=== PATIENT | female | born 1985 | race Asian ===

== ENCOUNTER 2021-07-30 11:15 | Emergency (ER) | payer SELFPAY ==
--- NOTE | 2021-07-30 11:20 | XR_ITS ---
WS: [id number] Portable AP upright chest, 07/30/2021 Clinical Data: chest pain Comparison: None. Findings: No nodules, masses or effusions are seen. The heart is normal. The pulmonary vascularity is not increased. No pneumonia or pneumothorax is seen. XR/XR chest 1V portable [id number] Impression: Negative chest.
[2021-07-30 11:25] VITALS: BP 133/86; PULSE 91; RESP 16; TEMP 36.3; O2SAT 98; BMI 31.3
--- NOTE | 2021-07-30 11:34 | PC.NURSE ---
ekg done and taken to ED physician
--- NOTE | 2021-07-30 11:40 | ED_ITS ---
HPI - Chest Pain General: Chief Complaint: Chest Pain Stated Complaint: cp History of Present Illness: HPI narrative: She presents with chest pressure. Patient states she was sent on her desk today and felt pressure in her chest and has been varying levels of intensity. She said at one point it radiated up into her left jaw. Patient states she feels pretty good right now but does have some heaviness in the center of her chest. Patient denies any heart history shortness of breath or recent illness or reflux. Patient does not appear in any acute distress presently. Visit with patient [id number]. Chest x-ray was clear. Patient stating she is wanting to leave. I advised her because she had chest pain pressure that she should stay and get laboratory work done and just verified that everything is okay. Patient says she is feeling fine she thinks she became upper quickly and should wait longer to see if symptoms resolve. Patient says she feels much better has no pain or pressure and that if she does she will return to the ER. I advised patient that she should stay she elects to leave. Course Vital Signs: Vital signs: Vital Signs Temperature 97.3 F L 07/30/21 11:25 Pulse Rate 91 07/30/21 11:25 Respiratory Rate 16 07/30/21 11:25 Blood Pressure 133/86 07/30/21 11:25 Pulse Oximetry 98 07/30/21 11:25 Coding Level of Care Code ED [employer] for [facility]ars
== END 2021-07-30 13:01 | disposition left against medical advice (07) ==
PROVIDERS: Emergency Provider Family Medicine
DX: R07.9 Chest pain, unspecified (principal)
CPT/HCPCS: 71045

== ENCOUNTER → 2022-03-14 09:28 | Outpatient (BNVA) | payer OTHER, SELFPAY | PROVIDERS: PCP Family Medicine; Visit Provider Family Medicine | DX: Z00.00 Encounter for general adult medical examination without abnormal findings (principal); Z12.4 Encounter for screening for malignant neoplasm of cervix; L70.9 Acne, unspecified | CPT/HCPCS: 87624 ==

== ENCOUNTER → 2022-09-12 09:03 | Outpatient (BNVA) | payer OTHER, SELFPAY | PROVIDERS: PCP Family Medicine; Visit Provider Family Medicine | DX: Z00.00 Encounter for general adult medical examination without abnormal findings (principal); L70.9 Acne, unspecified; R63.5 Abnormal weight gain | CPT/HCPCS: 80053; 80061; 83036; 84443 ==

== ENCOUNTER 2023-01-24 22:10 | Emergency (ER) | payer OTHER, SELFPAY ==
[2023-01-24 22:14] VITALS: BP 147/98; PULSE 105; RESP 18; TEMP 36.9; O2SAT 98; BMI 31.3
--- NOTE | 2023-01-24 23:31 | ED_ITS ---
HPI - Ear Problem General: Chief complaint: Ear Stated complaint: right ear pain Time Seen by Provider: 01/24/23 23:31 History of Present Illness: 37-year-old female comes in today for complaints of pain to the right ear. Patient was started on Augmentin and Ciprodex for an otitis externa of the right ear yesterday. Patient used the antibiotic eardrops once and had taken 1 dose of the antibiotic but comes in tonight due to the intense pain. Patient appears nontoxic. Patient appears in mild to moderate pain. Associated symptoms: Reports ear or mastoid pain Review of Systems ENMT: Reports: ear or mastoid pain Physical Exam Const: COMMON NORMALS: alert HENMT: COMMON NORMALS: normocephalic and TM's normal bilaterally HEAD & SCALP: normocephalic EXTERNAL AUDITORY CANAL: Abnormal EAC present EAC laterality: right Details: erythema and otic discharge TYMPANIC MEMBRANE: TM's normal bilaterally Neck/C-Spine: COMMON NORMALS: full ROM Resp: COMMON NORMALS: normal respiratory effort and clear to auscultation bilaterally AUSCULTATION: clear to auscultation bilaterally Cardio: COMMON NORMALS: regular rate and regular rhythm RATE: regular rate RHYTHM: regular rhythm Back/Pelvis: COMMON NORMALS: thoracic and lumbar spine normal to inspection Extremity: COMMON NORMALS: normal to inspection Neuro: SENSORIUM/ORIENTATION: Yes alert Skin: COMMON NORMALS: turgor normal GENERAL SKIN EXAM: turgor normal Course Vital Signs: Vital signs: Vital Signs Temperature 98.4 F 01/24/23 22:14 Pulse Rate 105 H 01/24/23 22:14 Respiratory Rate 18 01/24/23 22:14 Blood Pressure 147/98 01/24/23 22:14 Pulse Oximetry 98 01/24/23 22:14 [facility] - Ear Medical Decision Making 37-year-old female comes in today with increased pain and discomfort to the right ear after starting antibiotics for a otitis externa. Patient is presently on Ciprodex and Augmentin. Examination of the ear notes some exudate and drainage to the ear canal. Tympanic membrane appears clear without any erythema. Minimal swelling and erythema is noted to the canal. Left tympanic membrane and canal is normal. Differential diagnosis includes otitis externa, otitis media with perforation, cellulitis of the ear canal. Patient was given a dose of dexamethasone to help with pain and inflammation, 1 g of Rocephin for antibiotic, and 1 hydrocodone tablet. Patient had improvement of pain and was discharged home to continue antibiotics as prescribed and given 6 tablets of hydrocodone for severe pain. Patient reported understanding and agreed to plan. Discharge Plan Discharge Patient Disposition: Home Clinical Impression: Otitis externa Qualifiers: Otitis externa type: other infective Chronicity: acute Laterality: right Qualified Code(s): H60.391 - Other infective otitis externa, right ear Condition: Stable Prescriptions: New hydrocodone-acetaminophen 5-325 mg tablet 1 tab PO Q6H PRN (Reason: pain (scale score 7-10)) Qty: 6 0RF No Action tretinoin 0.05 % cream 1 applic topical Q2D Qty: 45 0RF amoxicillin-pot clavulanate 875-125 mg tablet 1 tab PO BID 7 Days Qty: 14 0RF ciprofloxacin-dexamethasone [Ciprodex] 0.3-0.1 % drops,suspension 4 drp otic (ear) BID 7 Days Qty: 7.5 0RF semaglutide 0.25 mg or 0.5 mg (2 mg/3 mL) pen injector 0.25 mg SUBCUT .weekly Qty: 3 5RF temazepam 7.5 mg capsule 7.5 mg PO .nightly Qty: 30 0RF Discharge Orders: Discharge ED (Routine); Ordered 01/24/23 Ordered By: Naveen Hale Referrals: Alexandru Levy DO [Primary Care Provider] - Discharge Diet: Usual diet Discharge Activity: Increase activity as tolerated Patient Instructions: Otitis Externa - Adult, Opioid Safety Activity Restrictions/Additional Instructions: Drink plenty of water and fluids. Continue with medications as directed. Use acetaminophen and ibuprofen to control pain. Use hydrocodone for severe pain. Follow-up with primary care for further instruction. Return to ED for new concerns or worsening symptoms. Coding Level of Care Code ED Outside [employer] for Pb [facility]
[2023-01-25] MEDS: cefTRIAXone 1,000 MG in water for injection-sterile 2.1 ML 1 MG IM (00:05)
[2023-01-25] MEDS: HYDROcodone-acetaminophen 7.5-325 mg Tablet 1 TAB PO (00:05)
[2023-01-25] MEDS: dexamethasone 10 mg/mL INJ IM (00:05)
== END 2023-01-25 00:21 | disposition home or self-care (01) ==
PROVIDERS: Emergency Provider Nurse Practitioner Family; PCP Family Medicine
DX: H60.391 Other infective otitis externa, right ear (principal)
CPT/HCPCS: 96372; 99284; J0696; J1100

== ENCOUNTER → 2023-02-06 08:15 | Outpatient (BNVA) | payer OTHER, SELFPAY | PROVIDERS: PCP Family Medicine; Visit Provider Family Medicine | DX: Z51.81 Encounter for therapeutic drug level monitoring (principal); E78.5 Hyperlipidemia, unspecified; Z00.00 Encounter for general adult medical examination without abnormal findings; Z13.6 Encounter for screening for cardiovascular disorders; E66.9 Obesity, unspecified | CPT/HCPCS: 80053; 80061 ==

== ENCOUNTER → 2023-03-31 08:18 | Outpatient (BNVA) | payer OTHER, SELFPAY | PROVIDERS: PCP Family Medicine; Visit Provider Family Medicine | DX: Z00.00 Encounter for general adult medical examination without abnormal findings (principal); E66.9 Obesity, unspecified; E78.5 Hyperlipidemia, unspecified; Z12.4 Encounter for screening for malignant neoplasm of cervix | CPT/HCPCS: 88175 ==

== ENCOUNTER 2023-11-04 06:00 | Outpatient (CLI) | payer OTHER, SELFPAY ==
--- NOTE | 2023-11-04 06:15 | US_ITS ---
WS: [id number] THYROID ULTRASOUND HISTORY: E01.0 - Iodine-deficiency related diffuse (endemic) goiter COMPARISON: None available. Right lobe: 2.0 cm x 2.0 cm x 5.0 cm (w x ap x l). Volume: 9.4 cm3. Normal size and echotexture. No significant are dominant nodules are present. Left lobe: 2.6 cm x 2.6 cm x 5.8 cm (w x ap x l). Volume: 19.2 cm3. Markedly enlarged thyroid. There is a large well-circumscribed slightly hyperechoic nodule with a few cystic areas in the mid gland. This nodule measures 3.0 x 1.9 x 3.7 cm and contains mild increased v ascularity. No punctate calcifications or echogenic foci. Isthmus: 0.2 cm. US/US thyroid 43152 IMPRESSION: 1. TI-RADS 3: Large nodule LEFT mid thyroid. Mildly suspicious. Ultrasound-archie ded FNA is recommended for nodules greater than 2.5 cm. 2. Negative RIGHT thyroid.
== END 2023-11-04 06:01 | disposition home or self-care (01) ==
LOC: RAD 06:00
PROVIDERS: PCP Family Medicine; Visit Provider Family Medicine
DX: E04.1 Nontoxic single thyroid nodule (principal); E01.0 Iodine-deficiency related diffuse (endemic) goiter; R53.83 Other fatigue
CPT/HCPCS: 76536; 80053; 84439; 84443; 84480; 85025

== ENCOUNTER → 2024-04-01 07:08 | Outpatient (BNVA) | payer OTHER, SELFPAY | PROVIDERS: PCP Family Medicine; Visit Provider Family Medicine | DX: R53.83 Other fatigue (principal) | CPT/HCPCS: 82728; 83540; 84443; 85025 ==

== ENCOUNTER → 2024-09-20 07:27 | Outpatient (BNVA) | payer OTHER, SELFPAY | PROVIDERS: PCP Family Medicine; Visit Provider Family Medicine | DX: E01.0 Iodine-deficiency related diffuse (endemic) goiter (principal); E78.5 Hyperlipidemia, unspecified; Z00.00 Encounter for general adult medical examination without abnormal findings; R53.83 Other fatigue; E03.9 Hypothyroidism, unspecified | CPT/HCPCS: 80053; 80061; 84439; 84443; 84481; 85025 ==

== ENCOUNTER → 2024-12-20 08:18 | Outpatient (BNVA) | payer OTHER, SELFPAY | PROVIDERS: PCP Family Medicine; Visit Provider Family Medicine | DX: Z12.4 Encounter for screening for malignant neoplasm of cervix (principal) | CPT/HCPCS: 87624 ==

== ENCOUNTER → 2025-03-02 13:28 | Outpatient (BNVA) | payer OTHER, SELFPAY | PROVIDERS: PCP Family Medicine; Visit Provider Obstetrics & Gynecology | DX: N92.6 Irregular menstruation, unspecified (principal) | CPT/HCPCS: 76830 ==

== ENCOUNTER → 2025-03-30 07:45 | Outpatient (BNVA) | payer OTHER, SELFPAY | PROVIDERS: PCP Family Medicine; Visit Provider Family Medicine | DX: I77.6 Arteritis, unspecified (principal); L56.4 Polymorphous light eruption; R53.83 Other fatigue; E03.9 Hypothyroidism, unspecified; M19.90 Unspecified osteoarthritis, unspecified site | CPT/HCPCS: 80053; 85025; 85651; 86140; 86160; 86162; 86235; 86255; 86376 ==

== ENCOUNTER 2025-06-21 09:21 | Day surgery (SDC) | payer OTHER, SELFPAY ==
[2025-06-21] VITALS (14 sets, daily range): BP systolic 94–108; BP diastolic 55–73; PULSE 79–87; RESP 12–24; TEMP 36.2–36.9; O2SAT 94–100; BMI 25.8
--- NOTE | 2025-06-21 05:01 | W.PM.OPSFHP ---
Same Day Surgery H&P Indication for Procedure/HPI DATE OF PROCEDURE: June 21, 2025 CHIEF COMPLAINT/INDICATIONFOR SURGICAL PROCEDURE: abnormal pap PREOP DIAGNOSIS: abnormal pap PLANNED PROCEDURE: Operation Date: 06/21/25 11:05 Proposed Procedures p Excision Tissue Cervix Loop Electrosurgical Excision Procedure (LEEP) 08220 R87.618 R87.612(Not Applicable) - Holland Kwok MD Medications/Allergies* Allergies/Adverse Reactions Allergy/AdvReac Type Severity Reaction Status Date / Time No Known Allergies Allergy Verified 03/29/25 14:38 Pertinent History/Comorbid Conditions* Medical History (Updated 03/29/25 @ 15:12 by Alexandru Levy DO) 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
[2025-06-21 10:10] LABS: OR HCG Qualitative Urine Negative (Negative)
--- NOTE | 2025-06-21 11:20 | ANES.PREANE2 ---
Pre-Anesthetic Assessment Height/Weight: Height 5 ft 7 in Weight 165 lb Temp Pulse Resp BP Pulse Ox O2 Del Method 98.5 F 87 18 96/55 96 Room Air 06/21/25 10:21 06/21/25 10:21 06/21/25 10:21 06/21/25 10:21 06/21/25 10:21 06/21/25 10:21 Preop Diagnosis: abnormal pap Operation Date: 06/21/25 11:05 Proposed Procedures p Excision Tissue Cervix Loop Electrosurgical Excision Procedure (LEEP) 74151 R87.618 R87.612(Not Applicable) - Holland Kwok MD Was Beta Neeraj taken within 24 hours: N/A Was Clonidine taken within 24 hours: N/A Last intake: Intake Last Liquid Date 06/20/25 Last Liquid Time 20:30 Last Solid Date 06/20/25 Last Solid Time 20:30 Social No alcohol and No tobacco Exam alert, oriented x 3, clear to auscultation bilaterally and regular rate & rhythm Airway Submandibular: within normal limits Cervical ROM: within normal limits Mallampati: Class III Dentition: full Comments: Comments: White plaque on tongue Anesthetic Plan ASA status: 2 Anesthesia: General Other: No prior issues with anesthesia NPO since yesterday evening Patient takes semaglutide for weight loss. Last taken 06/13/2025 Prior thyroidectomy last year Denies any cardiac or pulmonary issues METs greater than 4 Labs reviewed from March and acceptable for procedure Plan for general anesthesia Medications/Allergies Home Medications ?Medication ?Instructions ?Recorded ?Confirmed ?Last Taken ?Type tretinoin 0.05 % topical cream 1 applic topical Q2D #45 grams 09/12/22 06/20/25 Unknown Rx temazepam 7.5 mg capsule 7.5 mg PO .nightly teeth 03/31/23 06/20/25 Unknown Rx grinding/muscle spasm #30 caps triamcinolone acetonide 0.5 % 1 applic topical BID dermatitis 08/22/23 06/20/25 Unknown Rx topical cream #15 grams hydroxyzine HCl 25 mg tablet 25 mg PO BID PRN anxiety #60 tabs 04/27/24 06/20/25 Unknown Rx semaglutide 1 mg/dose (4 mg/3 mL) 1 mg (0.75 mL) SUBCUT .weekly #3 mL 03/29/25 06/20/25 06/13/25 Rx subcutaneous pen injector Allergies Allergy/AdvReac Type Severity Reaction Status Date / Time Sulfa (Sulfonamide Allergy ALGY-Hives Verified 06/21/25 10:08 Antibiotics) Current Medications Generic Name Dose Route Start Last Admin Trade Name Freq PRN Reason Stop Dose Admin Sodium Chloride 1,000 mls @ 30 mls/hr 06/21/25 10:00 06/21/25 10:27 Sodium Chloride 0.9% IV 06/22/25 09:59 30 mls/hr .Q24H LISSY Administration PFSH Anesthesia Medical History 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
--- NOTE | 2025-06-21 11:21 | W.PM.OPSUD ---
Surgery/Procedure H&P Update DATE OF PROCEDURE: June 21, 2025 DATE H&P PERFORMED: 06/21/25 H&P UPDATE INFORMATION: I have reviewed H&P completed within last 30 days, I have examined patient prior to procedure and No changes to prior documentation PREOP DIAGNOSIS: abnormal pap PLANNED PROCEDURE: Operation Date: 06/21/25 11:05 Proposed Procedures p Excision Tissue Cervix Loop Electrosurgical Excision Procedure (LEEP) 11354 R87.618 R87.612(Not Applicable) - Holland Kwok MD
[2025-06-21] MEDS: fentaNYL 50 mcg/mL INJ 2mL IVP (13:05)
--- NOTE | 2025-06-21 14:05 | PM.OP ---
Operative Report Date of procedure: June 21, 2025 Pre-op diagnosis: abnormal pap Post-op diagnosis: same Procedure done: Electrosurgical loop excision of the cervix Implants: none Specimens removed/disposition: cervical tissue Surgeon: Holland Kwok MD Anesthesia: MAC Estimated blood loss (mL): 5 Complications: none Condition: stable Disposition: PACU Brief History: 40 y.o. with long history of mildly abnormal paps Procedure: The patient was taken to the operating room and placed supine on the table. MAC anesthesia was induced. The patient was placed in dorsolithotomy position. The patient was prepped and draped in the usual sterile fashion. A bivalve speculum was placed in the vagina. The anterior lip of the cervix was grasped with a single toothed tenaculum. The cervix was then infiltrated at the cervicovaginal junction with 20 U of vasopressin to decrease bleeding. Electrosurgical loop excision of the cervix was done to a depth of approximately 5 mm. There was no bleeding seen. Excellent hemostasis was noted. All instruments were then removed. The patient was placed supine, awakened, and taken to the recovery room. Postoperative condition: stable EBL: less than 5 cc Complications: none Sponge and instrument counts were correct x two
--- NOTE | 2025-06-21 14:15 | ANE.PACU2 ---
Inpatient post-anesthesia follow up: Airway intact: Yes Vital signs: Temperature 98.1 F Pulse Rate 86 Respiratory Rate 18 Blood Pressure 94/59 Pulse Oximetry 97 Oxygen Delivery Me thod Room Air Oxygen Flow Rate 10 Fraction of Inspir ed Oxygen Hydration adequate: Yes Nausea and vomiting: No Pain level: 1 Mental status: Baseline
== END 2025-06-21 14:15 | disposition home or self-care (01) ==
PROVIDERS: Student in an Organized Health Care Education/Training Program; PCP Family Medicine; Visit Provider Obstetrics & Gynecology
PROC: (CPT 57522; principal; 2025-06-21 10:55)
DX: R89.6 Abnormal cytological findings in specimens from other organs, systems and tissues (principal); Z90.89 Acquired absence of other organs; Z80.3 Family history of malignant neoplasm of breast; Z80.0 Family history of malignant neoplasm of digestive organs
CPT/HCPCS: 57522; 81025; 88307; 88342; A4216; J1100; J2250; J2405; J2704; J3010; J3490; J7030